=== PATIENT | female | born 1980 | race Caucasian/White ===

== ENCOUNTER 2019-01-07 00:11 | Emergency (ER) | payer OTHER ==
[2019-01-07 03:21] LABS: ADD MAN DIFF? NO
[2019-01-07 03:22] LABS: BASOPHILS % 0.5 % (0.0-2.0); EOSINOPHILS # 0.1 10^3/ul (0.0-0.5); EOSINOPHILS % 1.6 % (0.0-7.0); HEMATOCRIT 38.1 % (37.0-47.0); HEMOGLOBIN 12.1 g/dl (12.0-16.0); LYMPHOCYTES % 35.3 % (15.0-51.0); MEAN CORPUSCULAR HEMOGLOBIN 26.9 pg (29.0-33.0); MEAN CORPUSCULAR HGB CONC 31.8 g/dl (32.0-37.0); MEAN CORPUSCULAR VOLUME 84.9 fl (82.0-101.0); MEAN PLATELET VOLUME 11.3 fl (7.4-10.4); MONOCYTE # 0.4 10^3/ul (0.3-0.9); MONOCYTES % 4.7 % (0.0-11.0); NEUTROPHIL # 4.9 10^3/ul (1.6-7.5); NEUTROPHILS % 57.4 % (39.0-77.0); PLATELET COUNT 310 10^3/UL (140-415); RED BLOOD COUNT 4.49 10^6/ul (4.20-5.40); RED CELL DISTRIBUTION WIDTH 13.4 % (11.5-14.5)
[2019-01-07 03:22] LABS: WHITE BLOOD COUNT 8.5 10^3/ul (4.8-10.8)
[2019-01-07 03:41] LABS: ALANINE AMINOTRANSFERASE 48 IU/L (13-69); ALBUMIN 4.5 g/dl (3.3-4.9); ALBUMIN/GLOBULIN RATIO 1.25; ALKALINE PHOSPHATASE 84 IU/L (42-121); ANION GAP 10 (5-13); ASPARTATE AMINO TRANSFERASE 38 IU/L (15-46); BILIRUBIN,INDIRECT 0.7 mg/dl (0-1.1); BILIRUBIN,TOTAL 0.7 mg/dl (0.2-1.3); BLOOD UREA NITROGEN 12 mg/dl (7-20); CALCIUM 9.5 mg/dl (8.4-10.2); CARBON DIOXIDE 27 mmol/L (21-31); CHLORIDE 103 mmol/L (97-110); Estimated GFR > 60 mL/min (>60); GLUCOSE 125 mg/dl (70-220); POTASSIUM 3.9 mmol/L (3.5-5.1); SODIUM 140 mmol/L (135-144); TOTAL PROTEIN 8.1 g/dl (6.1-8.1)
[2019-01-07 03:52] LABS: TROPONIN-I < 0.012 ng/ml (0.000-0.120)
== END 2019-01-07 04:23 | disposition home or self-care (01) ==
LOC: E/R 00:11
DX: R07.89 Other chest pain (principal); R51 Headache
CPT/HCPCS: 71045; 80053; 81025; 84484; 85025; 93005; 99285-25

== ENCOUNTER 2019-01-14 21:18 | Emergency (ER) | payer OTHER ==
[2019-01-14 23:58] LABS: ANION GAP 13 (5-13); BLOOD UREA NITROGEN 17 mg/dl (7-20); CALCIUM 9.6 mg/dl (8.4-10.2); CARBON DIOXIDE 31 mmol/L (21-31); CHLORIDE 82 mmol/L (97-110); CREATININE 0.79 mg/dl (0.44-1.00); Estimated GFR > 60 mL/min (>60); GLUCOSE 125 mg/dl (70-220); POTASSIUM 3.3 mmol/L (3.5-5.1); SODIUM 126 mmol/L (135-144)
[2019-01-15 00:16] LABS: T4 (THYROXINE) 10.3 ug/dl (5.5-11.0)
[2019-01-15 00:19] LABS: FREE T4 (FREE THYROXINE) 1.16 ng/dl (0.79-2.35)
[2019-01-15] MEDS: POTASSIUM CHLORIDE (SR) 20 MEQ TAB PO (01:21)
[2019-01-15] MEDS: SODIUM CHLORIDE 1 GM TAB PO (01:30)
== END 2019-01-15 01:31 | disposition home or self-care (01) ==
LOC: FTE 01-15 01:31
DX: R63.1 Polydipsia (principal)
CPT/HCPCS: 36415; 80048; 84436; 84439; 84443; 99283

== ENCOUNTER 2019-01-15 15:18 | Emergency (ER) | payer OTHER ==
[2019-01-15] MEDS: SOD CHLORIDE 0.9% 1,000 ML IV (16:46)
== END 2019-01-15 17:36 | disposition home or self-care (01) ==
LOC: FTE 15:18
DX: R63.1 Polydipsia (principal)
CPT/HCPCS: 80053; 85025; 99284-25

== ENCOUNTER 2019-01-18 13:56 | Emergency (ER) | payer OTHER | END 2019-01-18 17:54 | disposition home or self-care (01) | LOC: FTE 13:56 | DX: I10 Essential (primary) hypertension (principal) | CPT/HCPCS: 80053; 81001; 81025; 82962; 84439; 84443; 84703; 85025; 99283 ==